=== PATIENT | male | born 1935 | race Caucasian/White ===

== ENCOUNTER 2016-12-15 11:43 | Outpatient (CLI) ==
[2016-05-01 14:42] VITALS: BMI 21.9
--- NOTE | 2016-12-15 13:28 | DI ---
EXAM: Three views of the left hand. History: Left hand trauma. Findings: Evaluation limited due to flexion of the distal digits, especially the fourth and fifth. Osteopenia. No fractures are seen. No dislocation. Severe narrowing of the first carpal metacarp al joint and moderate to severe narrowing of the second through fourth MCP joints. Moderate narrowi ng of the radiocarpal joint. Moderate to severe narrowing of the interphalangeal joints with promin ent osteophytes. Impression: Flexion of the distal digits limits evaluation but no definite fractures are seen. Oste openia and osteoarthritis.
--- NOTE | 2016-12-15 13:59 | DI ---
Examination: Two radiographic images of the left forearm. Comparison: None available. Reason for study: Pain. FINDINGS: No acute fracture or dislocation. There is a linear lucency in the distal left radius an d ulna that is not seen on the hand films performed on the same day suggesting this is artifactual. No other areas of cortical irregularity or soft tissue changes suggesting an occult fracture. Impression: No acute fracture or dislocation is seen in the left forearm.
== END 2016-12-15 11:44 | disposition home or self-care (01) ==
LOC: RAD 11:43
PROVIDERS: ATTEND Internal Medicine
DX: S59.912A Unspecified injury of left forearm, initial encounter (principal); S69.92XA Unspecified injury of left wrist, hand and finger(s), initial encounter; M79.632 Pain in left forearm; M79.642 Pain in left hand

== ENCOUNTER 2017-05-27 14:33 | Inpatient (IN) ==
[2017-05-27] MEDS ORDERED: LASIX IVP STA (15:15)
[2017-05-27] MEDS ORDERED: TORADOL IVP STA (15:15)
[2017-05-27 15:59] LABS: HEMATOCRIT 37.4 % (42.0-52.0); HEMOGLOBIN 12.3 g/dl (14.0-18.0); MEAN CORPUSCULAR HEMOGLOBIN 31.2 pg (27.0-31.0); MEAN CORPUSCULAR HGB CONC 32.9 (31.8-35.4); MEAN CORPUSCULAR VOLUME 94.9 fl (80.0-94.0); RED BLOOD COUNT 3.94 10^6/ul (4.70-6.10); WHITE BLOOD COUNT 7.69 K/ul (4.2-10.2)
[2017-05-27 16:37] LABS: ALBUMIN 2.6 g/dL (3.4-5.0); ALBUMIN/GLOBULIN RATIO 0.67; ANION GAP 13.2; BILIRUBIN,TOTAL 0.74 mg/dL (0.00-1.20); BUN/CREATININE RATIO 20.66; CALCIUM 9.2 mg/dL (8.2-10.2); CREATININE 1.21 mg/dL (0.60-1.10); POTASSIUM 4.2 mmol/L (3.5-5.1); TOTAL PROTEIN 6.5 g/dL (5.8-8.1)
[2017-05-27] MEDS: LOVENOX SUBCUT SCH (16:45)
[2017-05-27 17:07] VITALS: BMI 21.3
[2017-05-27] MEDS ORDERED: NITROSTAT SL PRN (17:18)
[2017-05-27] MEDS ORDERED: NON-FORMULARY MEDICATION (Ferrous Sulfate [Ferrous Sulfate] 325 MG) PO SCH ×22 (21:00)
[2017-05-27] MEDS ORDERED: NON-FORMULARY MEDICATION (Lovastatin [Lovastatin] 40 MG) PO SCH ×22 (21:00)
[2017-05-27] MEDS ORDERED: BETAPACE PO SCH (21:00)
[2017-05-27] MEDS ORDERED: NON-FORMULARY MEDICATION (Rivaroxaban [Xarelto] 20 MG) PO SCH (21:00)
[2017-05-27] MEDS ORDERED: FERROUS SULFATE ONE (21:07)
[2017-05-27] MEDS ORDERED: MEVACOR ONE (21:07)
[2017-05-27] MEDS ORDERED: XARELTO ONE (21:07)
[2017-05-27] MEDS: NEURONTIN PO SCH (21:15)
[2017-05-27] MEDS: TORADOL IVP SCH (21:16)
[2017-05-28 04:37] LABS: HEMOGLOBIN 11.6 g/dl (14.0-18.0); MEAN CORPUSCULAR HEMOGLOBIN 31.6 pg (27.0-31.0); MEAN CORPUSCULAR HGB CONC 33.1 (31.8-35.4); MEAN CORPUSCULAR VOLUME 95.4 fl (80.0-94.0); RED BLOOD COUNT 3.67 10^6/ul (4.70-6.10)
[2017-05-28 05:01] LABS: ALBUMIN 2.3 g/dL (3.4-5.0); ALBUMIN/GLOBULIN RATIO 0.66; ANION GAP 14.1; BILIRUBIN,TOTAL 0.62 mg/dL (0.00-1.20); BUN/CREATININE RATIO 18.63; CALCIUM 8.8 mg/dL (8.2-10.2); CREATININE 1.61 mg/dL (0.60-1.10); POTASSIUM 4.1 mmol/L (3.5-5.1); TOTAL PROTEIN 5.8 g/dL (5.8-8.1)
[2017-05-28] MEDS: TORADOL IVP SCH ×3 (05:53→20:28)
[2017-05-28] MEDS: CARAFATE PO SCH ×2 (05:53→16:44)
[2017-05-28] MEDS: LASIX IVP SCH (05:54)
--- NOTE | 2017-05-28 07:32 | DI ---
Exam: Chest one-view. HISTORY: Cough, productive. Comparison: 01/12/2015. Findings: Portable image of the chest demonstrates alveolar opacity at the left lung base with blun ting of the left costophrenic angle. Multiple calcified granulomata are again noted bilaterally. T he cardiac silhouette is enlarged. The thoracic aorta is partially calcified. Intact sternal wires are in noted. The skeletal structures appear osteopenic and grossly intact. Impressions: Small left pleural effusion and left base atelectasis or pneumonia. Follow-up PA and l ateral radiographs of the chest after appropriate therapy are recommended to confirm resolution. Atherosclerosis and prior granulomatosis. Cardiomegaly. Prior sternotomy.
--- NOTE | 2017-05-28 07:39 | DI ---
Exam: Four x-rays of the left femur. Comparison: 09/21/2013 Reason for exam: Left thigh pain. FINDINGS: Operative changes are seen after intramedullary kamaljit fixation of the left femoral neck and femoral shaft without evidence of hardware complication. The cortex appears intact. Callus formati on in the left femoral neck suggest bony remodeling. No unexplained calcific soft tissue densities or radiopaque retained foreign bodies. Impression: Operative changes are seen after orthopedic fixation of the left femur without evidence of hardware complication. No acute fracture or malalignment.
[2017-05-28] MEDS ORDERED: NON-FORMULARY MEDICATION (Potassium Chloride [Potassium Chloride] 10 MEQ) PO SCH ×22 (09:00)
[2017-05-28] MEDS ORDERED: NON-FORMULARY MEDICATION (Fenofibrate,Micronized [Fenofibrate] 134 MG) PO SCH ×22 (09:00)
[2017-05-28] MEDS: CARDIZEM CD PO SCH (09:22)
[2017-05-28] MEDS: PROTONIX PO SCH (09:23)
[2017-05-28] MEDS: TRIGLIDE PO SCH (09:23)
[2017-05-28] MEDS: PROSCAR PO SCH (09:23)
[2017-05-28] MEDS: FERROUS SULFATE PO SCH ×2 (09:23→20:29)
[2017-05-28] MEDS: LOVENOX SUBCUT SCH (09:24)
[2017-05-28] MEDS: MICRO-K CAP PO SCH (09:24)
[2017-05-28] MEDS: BETAPACE PO SCH ×2 (09:26→20:30)
--- NOTE | 2017-05-28 12:45 | HP ---
DATE OF SERVICE: 05/27/17 REASON FOR HOSPITALIZATION/HISTORY OF PRESENT ILLNESS: Both upper legs hurting x2 weeks, not wanting to stand up-feels legs can't hold him, started 2 weeks ago. 2 to 7 on scale 1-10. No fall. Left worse then right. No redness or swelling. REVIEW OF SYSTEMS: CONSTITUTIONAL: No fever. Fatigue. HEENT: No sinus drainage, no sore throat. RESPIRATORY: No cough, no congestion. CARDIOVASCULAR: No atypical chest pain for coronary artery disease. No angina , CHF symptoms, palpitations or shortness of breath. GASTROINTESTINAL: No melena or abdominal pain. No GERD. GENITOURINARY: No hematuria, no prostatism, no polyuria. SUPERINTENDENT PIER: No blackout, no dizziness, no headache, no double vision. Gait: wheelchair. MUSCULOSKELETAL: Osteoarthritis pain, no joint swelling. ENDOCRINE: No weight loss, no weight gain. SKIN: Not dry, no rash. PSYCHIATRIC: Not anxious, no depression, no suicidal thoughts, no homicidal thoughts. SOCIAL HISTORY: Marital Status: . Alcohol Usage: No. Tobacco Usage: No. FAMILY HISTORY: Father Mother Sister-1 SURGICAL HISTORY: CABG's Cancer lip Cancer top of head Dr. Vargas 2014 Left leg, 2012 Right side carotid surgery MEDICAL HISTORY: CVA Hypertension Atrial fibrillation Dyslipidemia CAD/CABG's BPH PAD Chronic bronchitis Cholelithiasis Right carotid endarterectomy 2001 MEDICATIONS: Metoprolol Succinate ER 25mg daily Fenofibrate 134mg PO daily Lovastatin 40mg PO daily Carafate 1 gram twice a day Omeprazole 40mg PO daily Nitroglycerin Finasteride 5mg PO daily Stool Softener OTC Xarelto 20mg HS Lactulose Tamie 10/15ml Polireth Caluc Pow PRN Betapace 80mg 1/2 twice a day ASA 81mg PO daily Iron D twice a day Lasix 20mg PO daily Potassium 10 meq one daily Protonix 40mg PO daily Diltazem XR 120mg PO daily ALLERGIES: No known allergies PHYSICAL EXAMINATION: V/S: Pulse 60, blood pressure 118/64 and pulse ox 96%. GENERAL APPEARANCE: Oriented times three. HEENT: Normal. On the scalp, lesions. NECK: No JVP, no bruits. RESPIRATORY: Lungs are clear. Decreased breath sounds. CARDIOVASCULAR: S1, S2, no S3, Grade II/ murmur. No cyanosis, clubbing. No ascites. GI/ABDOMEN: No tenderness. Bowel sounds are active. EXTREMITIES: +1 pitting right and left edema, pulses +1, equal. SUPERINTENDENT PIER: Deep tendon reflexes, sensory, motor and gait all normal. RECTAL: 05/27 Dr. Garcia endo/PROSTATE: 07-27(4.6) Dr. Virgen. ASSESSMENT: 1. Leg swelling with leg pain More severe 2. CVA with left hemiparesis 3. Hypertension 4. Atrial fibrillation 5. Dyslipidemia 6. CAD/CABG 2005 7. Benign prostatic hypertrophy 8. PAD 9. Moderate Alzheimer's 10.BCA- Dr. Case 11.Chronic bronchitis 12.Cholelithiasis 13.Right Carotid endarterectomy 2001 PLAN: 1. Admit regular 2. Elevate legs 3. Toradol 30mg IV now and 8 hours 4. Lasix 20mg IV now and daily AM 5. Venous scan both lower extremities 6. Diet- regular 7. CBC , CMP, TSH today 8. Daily CBC and CMP 9. EKG and x-ray chest today 10.Continue all home medications. Discontinue PO Lasix 11.X-ray of left thigh (femur) 12.Neurontin 300mg PO at HS daily 13.Telemetry x24 hours 14.Lovenox 40mg subcutaneously daily TIME SPENT: More than 70 minutes. MTDD
--- NOTE | 2017-05-28 13:27 | PCM.PROG ---
Attending Provider: ATTENDING PROVIDER: Dr. AQUILES REESE DATE OF SERVICE: 05/28/17 SUBJECTIVE: This 81 year old WHITE/ M was hospitalized 05/27/17. The patient is seen with Leah, Nurse Practitioner. The patient is lying in bed, alert, difficulty communicating due to patient being hard of hearing. X-ray of left femur is normal. Venous scan today. REVIEW OF SYSTEMS: CONSTITUTIONAL: No night sweats. No fatigue, malaise, lethargy. No fever or chills. HEENT: Eyes: No visual changes. No eye pain. No eye discharge. ENT: No runny nose. No epistaxis. No sinus pain. No odynophagia. No congestion. RESPIRATORY: No cough, no congestion. No hemoptysis. CARDIOVASCULAR: No angina symptoms. No CHF symptoms. No atypical chest pain for CAD. No palpitations. No shortness of breath. GASTROINTESTINAL: No abdominal pain. No nausea or vomiting. No diarrhea or constipation. No hematemesis. No hematochezia. GENITOURINARY: No urgency. No frequency. No dysuria. No hematuria. No obstructive symptoms. No discharge. No pain. No significant abnormal bleeding. MUSCULOSKELETAL: Weakness of legs. NEUROLOGICAL: Confusion off and on. No headache. No neck pain. No syncope. No seizures. No dizziness. PSYCHIATRIC: Not anxious. No depression. No suicidal thoughts. No homicidal thoughts. SKIN: No rash. Wound on scalp 1". ENDOCRINE: No unexplained weight loss. No weight gain. HEMATOLOGIC/LYMPHATIC: No anemia. No purpura. No petechiae. No prolonged or excessive bleeding. No palpable lymph nodes. PHYSICAL EXAMINATION: GENERAL: The patient is somewhat confused , lying in bed in no distress. VITAL SIGNS: Temperature 97.0 F, Pulse 48, Respiratory Rate 20, BP 109/58, Pulse Ox 97% HEENT: Head normocephalic, atraumatic. Eyes: Extraocular muscles are intact. Pupils are equal, round and reactive to light and accommodation. Ears: No lesions. Hard of hearing. Nose appeared normal. Throat: No exudate or erythema. NECK: Supple. No JVD, no carotid bruit. No lymphadenopathy or thyromegaly. LUNGS: Equally diminished breath sounds, clear to auscultation. Percussion note normal. Chest symmetrical. HEART: S1, S2, no S3. Grade II/ systolic murmur. No cyanosis or clubbing. No ascites. Pulses: Dorsalis pedis and posterior tibial pulses +1 to +2 both sides. ABDOMEN: Soft. Non-tender. Bowel sounds active. No CVA tenderness. No mass felt. EXTREMITIES: Trace lower extremity edema. Full range of motion of all extremities, equal. NEUROLOGIC: No focal deficit. Cranial nerves II through XII are grossly intact. No headache, no double vision or headache. SKIN: Not dry. Turgor-normal. Wound on scalp 1", chronic, present for at least one year. LYMPHATIC: No palpable lymph nodes/no lymphedema. MUSCULOSKELETAL: Normal joints with no swelling. Muscle tone is normal. LAB REVIEW: 05/28/17 04:20 05/28/17 04:20 05/28/17 04:20: WBC 7.00, RBC 3.67 L, Hgb 11.6 L, Hct 35.0 L, MCV 95.4 H, MCH 31.6 H, MCHC 33.1, RDW Coeff of Giuseppe 13.8, Plt Count 193, Sodium 141, Potassium 4.1, Chloride 105, Carbon Dioxide 26, Anion Gap 14.1, BUN 30 H, Creatinine 1.61 H, Estimated GFR (MDRD) 41.00, BUN/Creatinine Ratio 18.63, Glucose 82, Calcium 8.8, Total Bilirubin 0.62, AST 15, ALT 7 L, Alkaline Phosphatase 69, Total Protein 5.8, Albumin 2.3 L, Globulin 3.5, Albumin/Globulin Ratio 0.66 05/27/17 15:15: WBC 7.69, RBC 3.94 L, Hgb 12.3 L, Hct 37.4 L, MCV 94.9 H, MCH 31.2 H, MCHC 32.9, RDW Coeff of Giuseppe 13.9, Plt Count 225, Sodium 139, Potassium 4.2, Chloride 104, Carbon Dioxide 26, Anion Gap 13.2, BUN 25 H, Creatinine 1.21 H, Estimated GFR (MDRD) 58.00, BUN/Creatinine Ratio 20.66, Glucose 87, Calcium 9.2, Total Bilirubin 0.74, AST 16, ALT 8 L, Alkaline Phosphatase 75, Total Protein 6.5, Albumin 2.6 L, Globulin 3.9, Albumin/Globulin Ratio 0.67, TSH 0.944 ASSESSMENT: 1. Leg swelling 2. Hypotension 3. Bradycardia 4. Leg pain PLAN: 1. Decrease Betapace to 20 mg b.i.d. 2. Venous scan is pending. Plan and coordination of the patient's care discussed in the presence of Aviation Support Equipment Repairer and nurse. CONDITION: Stable SCRIBED BY: GIRMA PERRY Social Media Intern scribed while in presence of service performed by Dr. AQUILES REESE/LEAH DAWSON APRN on 05/28/17 ([id number])
--- NOTE | 2017-05-28 14:24 | US ---
Exam: Rothman-scale and color Doppler ultrasonographic evaluation of the lower extremity venous struct ures. Comparison: None available. Reason for exam: Bilateral leg swelling and pain. FINDINGS: There is spontaneous flow with adequate compression and respiratory augmentation seen in both the left and right common femoral, greater saphenous, profunda, superficial femoral, popliteal, peroneal, posterior tibial veins. The right anterior tibial vein is not seen on the examination. The left anterior tibial veins demonstrate spontaneous flow with adequate compression and respirator y augmentation. Patient reports the anterior tibial vein was removed years ago for a bypass procedure. Impression: 1. No evidence of deep venous thrombosis is seen within either the right or left lower extremities. 2. The right anterior tibial vein is not seen on the examination presumably from previous surgical procedure.
[2017-05-28] MEDS: NEURONTIN PO SCH (20:29)
[2017-05-28] MEDS ORDERED: MEVACOR PO SCH (21:00)
[2017-05-28] MEDS ORDERED: XARELTO PO SCH (21:00)
[2017-05-29 05:45] VITALS: TEMP 300
[2017-05-29 05:46] LABS: HEMATOCRIT 34.4 % (42.0-52.0); HEMOGLOBIN 11.4 g/dl (14.0-18.0); MEAN CORPUSCULAR HEMOGLOBIN 31.7 pg (27.0-31.0); MEAN CORPUSCULAR HGB CONC 33.1 (31.8-35.4); MEAN CORPUSCULAR VOLUME 95.6 fl (80.0-94.0); RED BLOOD COUNT 3.6 10^6/ul (4.70-6.10); WHITE BLOOD COUNT 7.74 K/ul (4.2-10.2)
[2017-05-29] MEDS: CARAFATE PO SCH (05:51)
[2017-05-29] MEDS: TORADOL IVP SCH (05:52)
[2017-05-29] MEDS: LASIX IVP SCH (05:52)
[2017-05-29 06:11] LABS: ALBUMIN 2.2 g/dL (3.4-5.0); ALBUMIN/GLOBULIN RATIO 0.65; ANION GAP 14.7; BILIRUBIN,TOTAL 0.65 mg/dL (0.00-1.20); BUN/CREATININE RATIO 18.99; CALCIUM 8.6 mg/dL (8.2-10.2); CREATININE 1.79 mg/dL (0.60-1.10); POTASSIUM 4.7 mmol/L (3.5-5.1); TOTAL PROTEIN 5.6 g/dL (5.8-8.1)
[2017-05-29] MEDS: LOVENOX SUBCUT SCH (09:21)
[2017-05-29] MEDS: BETAPACE PO SCH (09:21)
[2017-05-29] MEDS: CARDIZEM CD PO SCH (09:22)
[2017-05-29] MEDS: FERROUS SULFATE PO SCH (09:22)
[2017-05-29] MEDS: PROTONIX PO SCH (09:23)
[2017-05-29] MEDS: TRIGLIDE PO SCH (09:23)
[2017-05-29] MEDS: MICRO-K CAP PO SCH (09:23)
[2017-05-29] MEDS: PROSCAR PO SCH (09:23)
[2017-05-29 10:11] VITALS: BP 132/82
--- NOTE | 2017-05-29 11:20 | PCM.PROG ---
Attending Provider: ATTENDING PROVIDER: Dr. AQUILES REESE DATE OF SERVICE: 05/29/17 SUBJECTIVE: This 81 year old WHITE/ M was hospitalized 05/27/17. The patient is seen by Leah, Nurse Practitioner. The patient is alert, lying in bed. The patient is ready to go home. Leg pain and swelling improved. is in the room. Vital signs and labs stable during course of hospital stay. All imaging negative. REVIEW OF SYSTEMS: CONSTITUTIONAL: No night sweats. No fatigue, malaise, lethargy. No fever or chills. HEENT: Head: Chronic ulcer on scalp. Eyes: No visual changes. No eye pain. No eye discharge. ENT: Ears: hard of hearing. No runny nose. No epistaxis. No sinus pain. No odynophagia. No congestion. RESPIRATORY: No cough, no congestion. No hemoptysis. No shortness of breath. CARDIOVASCULAR: No angina symptoms. No CHF symptoms. No atypical chest pain for CAD. No palpitations. No orthopnea. GASTROINTESTINAL: No abdominal pain. No nausea or vomiting. No diarrhea or constipation. No hematemesis. No hematochezia. GENITOURINARY: No urgency. No frequency. No dysuria. No hematuria. No obstructive symptoms. No discharge. No pain. No significant abnormal bleeding. MUSCULOSKELETAL: Positive for leg weakness. NEUROLOGICAL: Awake, alert, oriented to time, place and person. No headache. No neck pain. No syncope. No seizures. No dizziness. PSYCHIATRIC: Not anxious. No depression. No suicidal thoughts. No homicidal thoughts. SKIN: No rash. Ulcer on scalp. ENDOCRINE: No unexplained weight loss. No weight gain. HEMATOLOGIC/LYMPHATIC: No anemia. No purpura. No petechiae. No prolonged or excessive bleeding. No palpable lymph nodes. PHYSICAL EXAMINATION: GENERAL: The patient is awake, alert and oriented, lying in bed in no distress. VITAL SIGNS: Temperature 300 F, Pulse 49, Respiratory Rate 17, BP 126/62, Pulse Ox 98% HEENT: Head normocephalic, atraumatic. Eyes: Extraocular muscles are intact. Pupils are equal, round and reactive to light and accommodation. Ears: No lesions. Nose appeared normal. Throat: No exudate or erythema. NECK: Supple. No JVD, no carotid bruit. No lymphadenopathy or thyromegaly. LUNGS: Diminished breath sounds, equal and clear to auscultation. Percussion note normal. Chest symmetrical. HEART: S1, S2, no S3. Grade II/ systolic murmur. No cyanosis or clubbing. No ascites. Pulses: Dorsalis pedis and posterior tibial pulses +1 to +2 both sides. ABDOMEN: Soft. Non-tender. Bowel sounds active. No CVA tenderness. No mass felt. EXTREMITIES: No edema. Full range of motion of all extremities, equal. NEUROLOGIC: No focal deficit. Cranial nerves II through XII are grossly intact. No headache, no double vision or headache. SKIN: Not dry. Intact. Turgor-normal. LYMPHATIC: No palpable lymph nodes/no lymphedema. MUSCULOSKELETAL: Normal joints with no swelling. Muscle tone is normal. LAB REVIEW: 05/29/17 05:30 05/29/17 05:30 05/29/17 05:30: WBC 7.74, RBC 3.60 L, Hgb 11.4 L, Hct 34.4 L, MCV 95.6 H, MCH 31.7 H, MCHC 33.1, RDW Coeff of Giuseppe 13.6, Plt Count 201, Sodium 137, Potassium 4.7, Chloride 100, Carbon Dioxide 27, Anion Gap 14.7, BUN 34 H, Creatinine 1.79 H, Estimated GFR (MDRD) 37.00, BUN/Creatinine Ratio 18.99, Glucose 86, Calcium 8.6, Total Bilirubin 0.65, AST 18, ALT 8 L, Alkaline Phosphatase 68, Total Protein 5.6 L, Albumin 2.2 L, Globulin 3.4, Albumin/Globulin Ratio 0.65 ASSESSMENT: 1. Leg swelling and pain resolved 2. Hypotension resolved 3. Bradycardia PLAN: 1. Discharge home today. 2. Will see in the office next week. 3. Betapace 20 mg b.i.d. 4. The patient has [employer] and will have PT/OT at home and they are agreeable. Plan and coordination of the patient's care discussed in the presence of Dependency Case Manager and nurse. CONDITION: Stable SCRIBED BY: GIRMA PERRY Associate Principal scribed while in presence of service performed by Dr. AQUILES REESE/LEAH DAWSON APRN on 05/29/17 ([id number])
--- NOTE | 2017-05-29 12:17 | CM.DICTOOL ---
ADMISSION: 05/27/17 14:33 DISCHARGE: 05/29/17 DATE OF SERVICE: 05/29/17 FINAL DIAGNOSIS LEG SWELLING LEG PAIN CAD AND HISTORY OF [place], 2002 S/P CABG AORTIC STENOSIS ATRIAL FLUTTER/FIB HYPERTENSION DYSLIPIDEMIA PERIPHERAL ARTERIAL DISEASE CVA, LEFT SIDE WEAKNESS, 2008 CAROTID STENOSIS S/P RIGHT CAROTID ENDARTERECTOMY BRONCHITIS GI BLEED BY HISTORY ANEMIA CHOLELITHIASIS BPH SKIN CANCER (TOP OF HEAD) RADIATION [place], EXCISED BY DR. POSEY, [place], [place]; 06/26 GRAM NEGATIVE RODS/GRAM POSITIVE COCCI PER CULTURE 05/29/17 LIP CANCER S/P LEFT HIP FRACTURE/SURGERY, 2011 LAST VITALS Temp Pulse Resp BP Pulse Ox 300 F H 63 22 132/82 97 05/29/17 05:44 05/29/17 10:00 05/29/17 10:00 05/29/17 10:00 05/29/17 10:00 ACTIVE MEDICATIONS Diltiazem HCl (Cardizem Cd) 120 mg PO DAILY [facility] Last Admin: 05/29/17 09:22 Dose: 120 mg Fenofibrate (Triglide) 160 mg PO DAILY [facility] Last Admin: 05/29/17 09:23 Dose: 160 mg Ferrous Sulfate (Ferrous Sulfate) 324 mg PO BID [facility] Last Admin: 05/29/17 09:22 Dose: 324 mg Finasteride (Proscar) 5 mg PO DAILY [facility] Last Admin: 05/29/17 09:23 Dose: 5 mg Furosemide (Lasix) 20 mg PO QDAC [facility] Last Admin: 05/29/17 05:52 Dose: 20 mg Gabapentin (Neurontin) 300 mg PO BEDTIME [facility] (NEW PRESCRIPTION) Last Admin: 05/28/17 20:29 Dose: 300 mg Lovastatin (Mevacor) 40 mg PO BEDTIME [facility] Last Admin: 05/28/17 20:29 Dose: 40 mg Nitroglycerin (Nitrostat) 0.4 mg SL ONCE PRN PRN Reason: Chest Pain Pantoprazole Sodium (Protonix) 40 mg PO DAILY [facility] Last Admin: 05/29/17 09:23 Dose: 40 mg Potassium Chloride (Micro-K Cap) 10 meq PO DAILY [facility] Last Admin: 05/29/17 09:23 Dose: 10 meq Rivaroxaban (Xarelto) 20 mg PO BEDTIME [facility] Last Admin: 05/28/17 20:29 Dose: 20 mg Sotalol HCl (Betapace) 20 mg PO BID [facility] (NEW DOSE. DECREASED FROM 40 MG PO BID) Last Admin: 05/29/17 09:21 Dose: 20 mg Sucralfate (Carafate) 1 gm PO BIDAC [facility] Last Admin: 05/29/17 05:51 Dose: 1 gm ALLERGIES No Known Allergies Allergy (Unverified 05/01/16 11:00) NEW PRESCRIPTIONS: BACTROBAN 22 GRAM TUBE, ONE APPLICATION TO THE WOUND ON TOP OF YOUR HEAD TWICE DAILY GABAPENTIN (NEURONTIN) 300 MG, TAKE ONE CAPSULE BY MOUTH AT BEDTIME DAILY PLEASE NOTE THE DOSE CHANGE IN YOUR BETAPACE 40 MG TO 20 MG PO BID SMOKING: NONSMOKER DISEASE SPECIFIC EDUCATION: EDEMA LEG PAIN HOME MEDICATIONS NEW PRESCRIPTIONS FOLLOW UP LAB REVIEW: 05/29/17 05:30 05/29/17 05:30 05/29/17 05:30: WBC 7.74, RBC 3.60 L, Hgb 11.4 L, Hct 34.4 L, MCV 95.6 H, MCH 31.7 H, MCHC 33.1, RDW Coeff of Giuseppe 13.6, Plt Count 201, Sodium 137, Potassium 4.7, Chloride 100, Carbon Dioxide 27, Anion Gap 14.7, BUN 34 H, Creatinine 1.79 H, Estimated GFR (MDRD) 37.00, BUN/Creatinine Ratio 18.99, Glucose 86, Calcium 8.6, Total Bilirubin 0.65, AST 18, ALT 8 L, Alkaline Phosphatase 68, Total Protein 5.6 L, Albumin 2.2 L, Globulin 3.4, Albumin/Globulin Ratio 0.65 PLAN: DISCHARGE HOME TODAY RETURN TO SEE DR. REESE IN ONE WEEK. PLEASE PHONE TO SCHEDULE YOUR APPOINTMENT [phone] POSEY WITH REGARD TO THE WOUND ON THE TOP OF YOUR HEAD [facility] WILL CONTACT YOU TO BEGIN HOME HEALTH NURSING SERVICES FOR GENERAL ASSESSMENT, MEDICATION COMPLIANCE AND TO MONITOR FOR LOWER EXTREMITY EDEMA. PHYSICAL THERAPY AND OCCUPATIONAL THERAPY WILL ALSO PROVIDE SERVICES. RESUME YOUR HOME MEDICATIONS PER LIST PROVIDED BY THE NURSING STAFF PLEASE NOTE THE DECREASE IN YOUR BETAPACE FROM 40 MG TO 20 MG BY MOUTH TWICE DAILY NEW PRESCRIPTIONS: BACTROBAN 22 GRAM TUBE, ONE APPLICATION TO THE WOUND ON TOP OF YOUR HEAD TWICE DAILY GABAPENTIN (NEURONTIN) 300 MG, TAKE ONE CAPSULE BY MOUTH AT BEDTIME DAILY ACTIVITY: GET PLENTY OF REST AT HOME. GRADUALLY INCREASE YOUR ACTIVITY LEVEL ACCORDING TO YOUR TOLERATION DIET: REGULAR DIET TOLERATED SUMMARY: THE PATIENT IS ALERT AND ORIENTED X3. HE CURRENTLY RESIDES AT HOME WITH HIS SPOUSE. HE REQUIRES ASSISTANCE WITH SOME ADL'S BUT IS ABLE TO FEED HIMSELF AND COMPLETE PARTIAL HYGIENIC TASKS. HE HAS A WHEELCHAIR, HOSPITAL BED AND SHOWER CHAIR AT HOME. HE UTILIZED [facility] PRIOR TO THIS ADMISSION. THESE SERVICES WILL BE RESUMED AT DISCHARGE. IN ADDITION WE HAVE ARRANGED FOR HOME HEALTH NURSING, PT/OT SERVICES. THE PATIENT IS AWARE AND IS AGREEABLE FOR [facility] TO PROVIDE THIS CARE IN HIS HOME. THE PATIENT'S SKIN TURGOR IS VERY FRAGILE. HE HAS SEVERAL AREAS OF ECCHYMOSIS AND A SKIN TEAR FROM "SCRATCHING" ON HIS RIGHT HAND BETWEEN HIS THIRD AND FOURTH FINGER. HIS HYDRATIONS STATUS IS IMPROVED IS HIS APPETITE. HE IS PAIN FREE AND OFFERS NO COMPLAINTS OF DISCOMFORT THIS MORNING. HE IS AWARE AND AGREEABLE FOR TODAY'S DISCHARGE. CURRENT CODE STATUS: DO NOT RESUSCITATE VEGA DAWSON APRN AQUILES REESE M.D.
--- NOTE | 2017-06-01 08:37 | ECHO2D ---
Date of Exam: 05/29/17 Ordering Physician: AQUILES REESE Reason for Echo: PERIPHERAL EDEMA, SINUS BRADYCARDIA M-Mode Normal Adult Results LV Dimensions Normal Adult Results AoV Opening excursions >1.6 1.3 LVEDD-base- 3.5-5.8 4.0 Ao root dimensions 2.0-3.7 3.4 LVESD-base- 3.1-4.6 L. Atrium dimensions 1.9-3.8 4.4 Post. Wall thickness 0.8-1.1 1.3 IV septum (thickness) 0.7-1.2 1.4 Post. Wall excursion 0.72-1.3 NORMAL Septal motion NORMAL Systolic motion R. Ventricular cavity 1.5-2.0 NORMAL LVEF 60% 57% Paradoxical septal wall motion NORMAL 2-D : ENLARGED LEFT ATRIAL CAVITY--NORMAL LEFT VENTRICULAR CONTRACTILITY-- CALCIFIC MITRAL VALVE ANNULUS--CALCIFIC AORTIC VALVES--NO EFFUSION, NO THROMBUS M-MODE: MV: CALCIFIC MITRAL VALVE ANNULUS--MAYBE STENOSIS AV: CALCIFIC AORTIC VALVES--MILD TO MODERATE STENOSIS TV: NORMAL PV: NORMAL CHAMBER SIZE: ENLARGED LEFT ATRIAL CAVITY WALL MOTION: NORMAL PERICARDIUM: NORMAL INTERPRETATION: 1. LEFT VENTRICLE HYPERTROPHY WITH ENLARGED LEFT ATRIAL CAVITY 2. LEFT VENTRICULAR CONTRACTILITY--NORMAL 3. CALCIFIC AORTIC VALVES--MILD TO MODERATE AORTIC STENOSIS 4. CALCIFIC MITRAL VALVE ANNULUS--MAYBE MILD STENOSIS MTDD
--- NOTE | 2017-06-05 08:35 | PN ---
DATE OF SERVICE: 05/28/17 SUBJECTIVE: The patient is an 81 year old white male hospitalized with leg swelling, severe leg pain and polyradiculopathy. The patient had a fracture of the left thigh. The patient's venous scans and x-ray of the left thigh all normal. The is in the room and she is happy with the patient's progress. REVIEW OF SYSTEMS: CONSTITUTIONAL: No night sweats. No fatigue, malaise, lethargy. No fever or chills. HEENT: Eyes: No visual changes. No eye pain. No eye discharge. ENT: No runny nose. No epistaxis. No sinus pain. No sore throat. No odynophagia. No congestion. RESPIRATORY: No cough, no congestion. No hemoptysis. No shortness of breath. CARDIOVASCULAR: No angina symptoms. No CHF symptoms. No atypical chest pain for CAD. No palpitations. No orthopnea. GASTROINTESTINAL: No abdominal pain. No nausea or vomiting. No diarrhea or constipation. No hematemesis. No hematochezia. Appetite better. GENITOURINARY: No urgency. No frequency. No dysuria. No hematuria. No obstructive symptoms. No discharge. No pain. No significant abnormal bleeding. MUSCULOSKELETAL: No musculoskeletal pain; no joint swelling. Much less pain. NEUROLOGICAL: No headache. No neck pain. No syncope. No seizures. No dizziness. PSYCHIATRIC: Not anxious. No depression. No suicidal thoughts. No homicidal thoughts. SKIN: No rash. No lesions. No wounds. ENDOCRINE: No unexplained weight loss. No weight gain. HEMATOLOGIC/LYMPHATIC: No anemia. No purpura. No petechiae. No prolonged or excessive bleeding. No palpable lymph nodes. PHYSICAL EXAMINATION: GENERAL: The patient is somewhat sleepy and oriented to person. VITAL SIGNS: Temperature 97.0, pulse 48, respiratory 20, blood pressure 109/58 and pulse ox 97%. HEENT: Head normocephalic, atraumatic. Eyes: Extraocular muscles are intact. Pupils are equal, round and reactive to light and accommodation. Ears: No lesions. Nose appeared normal. Throat: No exudate or erythema. NECK: Supple. No JVD, no carotid bruit. No lymphadenopathy or thyromegaly. LUNGS: Clear to auscultation. Percussion note normal. Chest symmetrical. HEART: S1, S2, no S3. No murmurs. No cyanosis or clubbing. No ascites. Pulses: Dorsalis pedis and posterior tibial pulses +1 to +2 both sides. ABDOMEN: Soft. Nontender. Bowel sounds active. No CVA tenderness. No mass felt. EXTREMITIES: No edema. Full range of motion of all extremities, equal. NEUROLOGIC: No focal deficit. Cranial nerves II through XII are grossly intact. No headache, no double vision or headache. SKIN: Not dry. Intact. Turgor - normal. LYMPHATIC: No palpable lymph nodes/no lymphedema. MUSCULOSKELETAL: Normal joints with no swelling. Muscle tone is normal. ASSESSMENT: 1. Left bilateral lower extremity pain, likely neurogenic seems to be better with Neurontin and Toradol IV PLAN: 1. Venous scan negative 2. Discussed with the patient's family the patient's cardiovascular status seems to be stable. 3. The patient's dose of Betapace has been reduced to 20mg twice a day because of patient's heart rate being 48 per minute. 4. Will do cardiac workup in a way of echocardiogram tomorrow. The patient was seen and examined with Nurse Practitioner. TIME SPENT: More than 30 minutes. Plan and coordination of the patient's care discussed in the presence of nurse. DEBBIE
--- NOTE | 2017-06-11 12:12 | PN ---
DATE OF SERVICE: 05/29/17 The patient was seen and examined with the nurse practitioner and patient case coordinator. SUBJECTIVE: 81 year old white male hospitalized with leg swelling and moderate to severe leg pain, left sided nonneuropathic type. According to the , the patient's leg pain is practically subsided. The patient has been on Neurontin and this seems to be working well. His hydration status has improved. He is eating better and resting better. PHYSICAL EXAMINATION: GENERAL: The patient is in no distress. HEENT: Head normocephalic, atraumatic. Eyes: Extraocular muscles are intact. Pupils are equal, round and reactive to light and accommodation. Ears: No lesions. Nose appeared normal. Throat: No exudate or erythema. NECK: Supple. No JVD, no carotid bruit. No lymphadenopathy or thyromegaly. LUNGS: Clear to auscultation. Percussion note normal. Chest symmetrical. HEART: S1, S2, no S3. No murmurs. No cyanosis or clubbing. No ascites. Pulses: Dorsalis pedis and posterior tibial pulses +1 to +2 both sides. ABDOMEN: Soft. Nontender. Bowel sounds active. No CVA tenderness. No mass felt. EXTREMITIES: No edema. Full range of motion of all extremities, equal. NEUROLOGIC: No focal deficit. Cranial nerves II through XII are grossly intact. No headache, no double vision or headache. SKIN: Not dry. Intact. Turgor - normal. LYMPHATIC: No palpable lymph nodes/no lymphedema. MUSCULOSKELETAL: Normal joints with no swelling. Muscle tone is normal. LABS: Hemoglobin 11.4, hematocrit 34, WBC 7,700 with normal differential. Creatinine 1.7, BUN 34. TSH normal. The patient had an echocardiogram done which showed mild to moderate aortic stenosis and mild to moderate mitral stenosis. LV contractility is normal. LA cavities enlarged. The patient has an LVH. I discussed with the patient's family and the patient is not a candidate for any aggressive measures. They do not want anything to be done, except for him to be monitored. PLAN: 1. The patient will be discharged home. 2. PT and OT to be done by [facility], because the patient needs to stand up and do some things. Transfer needs to be trained for it. CONDITION: Stable. TIME SPENT: More than 30 minutes. Plan and coordination of the patient's care discussed in the presence of nurse. DEBBIE
--- NOTE | 2017-06-11 12:14 | PN ---
05/27/17 LEVEL 5 05/28/17 INTERMEDIATE 05/29/17 DISCHARGE MTDD
--- NOTE | 2017-06-11 14:27 | DS ---
DATE OF SERVICE: 05/29/17 FINAL DIAGNOSIS: 1. LEG SWELLING 2. LEG PAIN/NEUROPATHY 3. CAD AND HISTORY 4. AORTIC STENOSIS 5. ATRIAL FLUTTER/FIB 6. HYPERTENSION 7. DYSLIPIDEMIA 8. PERIPHERAL ARTERIAL DISEASE 9. CVA, LEFT-SIDED WEAKNESS, 2008 10. CAROTID STENOSIS STATUS POST RIGHT CAROTID ENDARTERECTOMY 11. BRONCHITIS 12. GI BLEED BY HISTORY 13. ANEMIA 14. CHOLELITHIASIS 15. BPH 16. SKIN CANCER (TOP OF HEAD) RADIATION TX, EXCISED BY DR. 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 S/P LEFT HIP FRACTURE/SURGERY, 2011 DISCHARGE INSTRUCTIONS: Followup appointment: Return to see Dr. Otero in one week. Please phone to schedule your appointment. [facility] will contact you to begin home health nursing services for general assessment, medication compliance and to monitor for lower extr emity edema. Physical Therapy and Occupational Therapy will also provide services. MEDICATIONS AT DISCHARGE: 1. Nitroglycerin 0.4 mg SL once p.r.n. 2. Pantoprazole 40 mg p.o. daily 3. Fenofibrate 134 mg p.o. daily 4. Lovastatin 40 mg p.o. bedtime 5. Finasteride 5 mg p.o. daily 6. Docusate Sodium 100 mg p.o. b.i.d. 7. Rivaoxaban (Xarelto) 20 mg p.o. bedtime 8. Furosemide 20 mg p.o. q.d a.c. 9. Potassium Chloride 10 mEq p.o. daily 10. Ferrous Sulfate 325 mg p.o. b.i.d. 11. Diltiazem (Cartia XT) 120 mg p.o. daily 12. Sucralfate (Carafate) 1 gm p.o. b.i.d. a.c. NEW PRESCRIPTIONS: 1. Bactroban 22 gm tube, one application to the wound on top of your head twice daily 2. Gabapentin (Neurontin) 300 mg, take one capsule by mouth at bedtime daily Please note the Decrease in your Betapace 40 mg to 20 mg p.o. b.i.d. DIET INSTRUCTIONS: Regular diet as tolerated. ACTIVITY: Get plenty of rest at home. Gradually increase your activity level according to your toleration. SMOKING: Nonsmoker DISEASE SPECIFIC EDUCATION: 1. Edema 2. Leg pain 3. Home medications 4. New prescriptions 5. Follow up HOSPITAL COURSE: This is an 81-year-old male who is a direct admit from our office. He was seen in our office with bilateral leg pain and swelling worse on the left. He does have a history of a left femur fracture for which he has some pins and rods and his was concerned that some of his hardware may have migrated. He was admitted, placed on routine telemetry orders. He was given Toradol 30 mg IV for pain. X-ray of the left femur was done which showed all hardware was in place with no migration, no acute changes. Changes were only consistent with osteoarthritis. He had bilateral venous scan which was also negative and showed no blood clots. He was placed on routine telemetry orders. He was experiencing some bradycardia while in the hospital. He was currently on Betapace 40 mg b.i.d. This was decreased to 20 mg p.o. b.i.d. He was started on physical therapy. Over the past two days this morning he stated that he had not been hurting. He had been eating 100% of his meals. His pain had improved. I do believe that his pain is more related to muscular with more muscular in origin and is due to inactivity as he is in a wheelchair most of the time. We will order Physical Therapy and Occupational Therapy to be done at home. The family already has [facility] come out during the week so we will just add Physical Therapy and Occupational therapy through [facility] as well. The patient does have a history of aortic stenosis and Dr. Otero is going to do a 2D echo before discharge just as a followup. His vital signs and labs have all been steady. On the day of discharge, pulse rate was 50, respirations 17, BP 126/62, pulse ox 98% on room air. Hemoglobin 11.4, hematocrit 34.4, white count 7.7, platelets 201. Sodium 137, potassium 4.7, BUN 34, creatinine 1.79 which is steady for him. We will monitor him closely and see him in the office the next week. He does have a chronic open lesion on his scalp from a previous resection of skin cancer which has unhealed and has been that way approximately the past year. A culture was conducted which showed no growth of any organisms and was normal. We will discharge him home with decrease of 20 mg of Betapace b.i.d. Again, will start the Physical Therapy and Dr. Otero will do an echo and follow him up in the office next week. TIME SPENT: More than 60 minutes. DEBBIE
== END 2017-05-29 14:10 | disposition home health service (06) | DRG 74 ==
LOC: MEDSURG B 14:33
PROVIDERS: ADMIT Internal Medicine; ATTEND Internal Medicine
DX: G57.93 Unspecified mononeuropathy of bilateral lower limbs (principal); I69.354 Hemiplegia and hemiparesis following cerebral infarction affecting left non-dominant side; R60.0 Localized edema; M79.605 Pain in left leg; M79.604 Pain in right leg; I25.10 Atherosclerotic heart disease of native coronary artery without angina pectoris; I35.0 Nonrheumatic aortic (valve) stenosis; I48.91 Unspecified atrial fibrillation; I10 Essential (primary) hypertension; I73.9 Peripheral vascular disease, unspecified; E78.5 Hyperlipidemia, unspecified; R41.0 Disorientation, unspecified; R00.1 Bradycardia, unspecified; S01.00XA Unspecified open wound of scalp, initial encounter; B95.61 Methicillin susceptible Staphylococcus aureus infection as the cause of diseases classified elsewhere; B96.89 Other specified bacterial agents as the cause of diseases classified elsewhere; X58.XXXA Exposure to other specified factors, initial encounter; I95.9 Hypotension, unspecified; J40 Bronchitis, not specified as acute or chronic; D64.9 Anemia, unspecified; N40.0 Benign prostatic hyperplasia without lower urinary tract symptoms; Z87.81 Personal history of (healed) traumatic fracture; Z98.62 Peripheral vascular angioplasty status; Z87.19 Personal history of other diseases of the digestive system; Z98.890 Other specified postprocedural states; Z16.11 Resistance to penicillins
CPT/HCPCS: 36415; 80053; 84443; 85027; 87070; 87081; 87186; 93005; 93010; 99223; 99232; 99239

== ENCOUNTER 2017-07-20 13:41 | Outpatient (CLI) ==
--- NOTE | 2017-07-20 14:41 | DI ---
EXAM: Chest two view, frontal and lateral views. HISTORY: Left pleural effusion. Follow-up. COMPARISON: 05/27/2017. FINDINGS: Median sternotomy wires are present. Heart size is stable. Atherosclerotic calcification s noted. Left pleural effusion with left mid to lower lung consolidation is unchanged. There may be a tiny right pleural effusion. Numerous calcified and noncalcified nodular densities throughout bot h lungs again noted. No pneumothorax identified. Degenerative changes seen in the spine. Since the prior study, there has been no significant interval change. IMPRESSION: Stable left pleural effusion with left mid to lower lung consolidation.
== END 2017-07-20 13:42 | disposition home or self-care (01) ==
LOC: RAD 13:41
PROVIDERS: ATTEND Nurse Practitioner Acute Care
DX: J90 Pleural effusion, not elsewhere classified (principal)

== ENCOUNTER 2017-07-29 18:44 | Emergency (ER) ==
[2017-07-29 18:49] VITALS: TEMP 96.8; BMI 22.9
--- NOTE | 2017-07-29 19:56 | CT ---
EXAM: CT scan of the head without contrast HISTORY: Fall injury right hip pain TECHNIQUE: Imaging of the head was performed without contrast. 5 mm thin axial images and coronal a nd sagittal images were provided for interpretation. Comparison 09/21/2013 CT scan of the head without contrast. FINDINGS: The lateral ventricles and cortical sulci are prominent from atrophy. Low density changes are again seen within the right frontal, right parietal lobe, and right occipital lobe. There is no acute hemorrhage or mass effect. There are no extraaxial collections. The basal cisterns are paten t. The paranasal sinuses and mastoid air cells are clear. The calvarium appears normal. IMPRESSION: No acute intracranial abnormalities are seen. Stable appearance of old cerebral infarction seen within the right frontal, right parietal lobe, and right occipital lobe. Chronic small vessel ischemic changes seen throughout the supratentorial white matter.
[2017-07-29] MEDS ORDERED: SODIUM CHLORIDE 1,000 ML IV STA (20:00)
--- NOTE | 2017-07-29 20:01 | CT ---
EXAM: CT scan of the cervical spine without contrast HISTORY: Fall TECHNIQUE: Imaging of the cervical spine was performed without contrast. Sagittal and coronal recon structions and axial images were provided for interpretation. FINDINGS: There is straightening of the cervical spine. The occipital condyles, C1 ring appear inta ct. The odontoid process and C2 vertebral body appear intact. The spinous processes are intact. No acute fractures are seen. There is a normal alignment of the facet joints. There is a left-sided ple ural effusion. IMPRESSION: No evidence of acute fracture dislocation seen within the cervical spine. Left pleural effusion.
[2017-07-29 20:02] LABS: BASOPHILS % (AUTO) 0.3 % (0.0-3.0); EOSINOPHILS % (AUTO) 0.1 % (0.0-7.0); HEMATOCRIT 37.7 % (42.0-52.0); HEMOGLOBIN 12.2 g/dl (14.0-18.0); IMMATURE GRANULOCYTE % (AUTO) 0.4 % (0.0-5.0); LYMPHOCYTES # (AUTO) 1.6 K/uL (0.60-3.4); LYMPHOCYTES % (AUTO) 11.6 (10.0-50.0); MEAN CORPUSCULAR HGB CONC 32.4 (31.8-35.4); MEAN CORPUSCULAR VOLUME 95.7 fl (80.0-94.0); MONOCYTES # (AUTO) 0.7 K/uL (0.4-2.0); MONOCYTES % (AUTO) 5.2 (0-10); NEUTROPHILS # (AUTO) 11.2 K/ul (2.0-6.9); NEUTROPHILS % (AUTO) 82.4; PLATELET COUNT 297 10^3/uL (140-440); RED BLOOD COUNT 3.94 10^6/ul (4.70-6.10); WHITE BLOOD COUNT 13.59 K/ul (4.2-10.2)
--- NOTE | 2017-07-29 20:07 | CT ---
Exam: CT of the chest without contrast History: Fall with chest pain Technique: [address] of the chest without intravascular contrast FINDINGS: Moderate left and small right pleural effusion. Extensive granulomatous calcifications an d partially calcified nodules bilaterally. There is no pneumothorax. Mild emphysematous change. At herosclerotic calcification of the aorta without aneurysm. Prior median sternotomy. No pathologic l ymph node enlargement or abundance of mediastinum. No acute findings of the chest wall. No acute fin dings of the upper abdomen. Incidental cholelithiasis. Impression: 1. No evidence of significant post traumatic change of the chest 2. Bilateral multiple pulmonary nodules which are partially calcified. Similar findings on 09/21/20 13. 3. Moderate left and small right pleural effusions. Adjacent consolidative change of the left lung could be pneumonia or atelectasis.
--- NOTE | 2017-07-29 20:08 | CT ---
EXAM: CT of the lumbar spine without contrast. TECHNIQUE: Helical CT of the lumbar spine was performed without contrast with coronal and sagittal r econstructions. COMPARISON: CT thoracic spine from same day and CT lumbar spine from 07/29/2017 HISTORY: Trauma FINDINGS: There is a compression fracture at L5 which is new compared to the previous CT. This is r esulting in approximately 30% of vertebral body height loss. There is no significant retropulsion. There are a few sharply defined fracture lines within the vertebral body consistent with an acute fra cture. Alignment is anatomic. There are no pars defects. There is no bony effacement the canal. Disc spaces are well preserved. There is no evidence for laminar or transverse process or spinous process fractu re. The pedicles are intact. The facets are anatomically aligned. Soft tissues demonstrate no acut e abnormality. There is advanced calcific atherosclerosis. There are bilateral pleural effusions. T here are gallstones. There is a renal cyst on the right. There is a punctate nonobstructive calcifi cation in the left kidney. There is no abnormality seen in the visualized portion of the bony pelvis. There is advanced degenerative change noted with very advanced anterior osteophytosis at the thoraco lumbar junction. There are five lumbar-type vertebral bodies. IMPRESSION: 1. Acute compression fracture at L5 as described with no significant retropulsion. 2. Other miscellaneous findings as above.
--- NOTE | 2017-07-29 20:09 | CT ---
EXAM: CT thoracic spine without contrast TECHNIQUE: Helical CT of the thoracic spine was performed without contrast with coronal and sagittal reconstructions COMPARISON: Lumbar spine CT from same day HISTORY: Trauma FINDINGS: There is no acute fracture or dislocation or subluxation. There is a mild scoliosis. There is no compression fracture. There is no bony effacement of the canal. The lamina and facets are in tact. There is no transverse or spinous process fracture. There are no rib fractures seen. There i s no pneumothorax in the visualized lung pinon. There are bilateral effusions left greater than righ t along with extremely advanced pleural parenchymal changes and multifocal calcifications. There is e xtremely advanced degenerative change in the thoracic spine. In particular there is prominent anteri or osteophytosis at the thoracolumbar junction. There are gallstones. There is a nonobstructive punc andrews stone in the left kidney. There is calcific atherosclerosis. IMPRESSION: 1. No acute osseous abnormality in the thoracic spine. 2. Extremely advanced degenerative changes with no significant bony effacement of the canal. 3. Soft tissue findings as above please see report of chest CT from same day for details.
--- NOTE | 2017-07-29 20:09 | CT ---
Exam: CT pelvis without contrast History: Fall with pelvic pain Technique: [address] bony pelvis with multiplanar reformations FINDINGS: The pelvic ring is intact. Bones are demineralized. Left hip transfemoral nail. Right h ip intertrochanteric fracture with varus angulation. No acute visceral abnormalities are seen. Athe rosclerotic vascular calcifications. Impression: 1. Right hip comminuted intertrochanteric fracture.
[2017-07-29 20:19] LABS: ALBUMIN 2.3 g/dL (3.4-5.0); ALBUMIN/GLOBULIN RATIO 0.52; ANION GAP 14.7; BILIRUBIN,TOTAL 0.9 mg/dL (0.00-1.20); BUN/CREATININE RATIO 18.05; CALCIUM 9.4 mg/dL (8.2-10.2); CREATININE 1.44 mg/dL (0.60-1.10); POTASSIUM 4.7 mmol/L (3.5-5.1); TOTAL PROTEIN 6.7 g/dL (5.8-8.1)
[2017-07-29 20:24] VITALS: BP 88/68
--- NOTE | 2017-07-29 20:24 | ED.PDOC ---
General ED Provider: Dr. RUBEN THORNTON-ER Chief Complaint: Fall Stated Complaint: he fell at home--he is complaining of hip pain and back pain-- fell in transferring from wheelchair to bed Time Seen by Physician: 18:45 Mode of Arrival: Ambulance Information Source: Patient, Family, EMT Exam Limitations: No limitations Primary Care Provider: AQUILES REESE Nursing and Triage Documentation Reviewed and Agree: Yes Musculoskeletal Complaint Exam - Hip/Pelvis Complaint/Exam Location of Pain: Reports: Right, Hip Mechanism of Injury: Reports: Trauma Onset/Duration: 2 hrs Symptoms Are: Still present Initial Severity: Mild Current Severity: Moderate Location: Reports: Discrete Character: Reports: Dull, Aching Aggravating: Reports: Movement, Weight bearing Alleviating: Reports: Position Associated Signs and Symptoms: Denies: Swelling, Redness, Bruising, Fever, Weakness, Dizziness, Syncope, Abdominal pain, Knee pain Related History: Reports: Similar episode Able to Bear Weight: No Septic Arthritis Risk Factors: Reports: Extremes of age Related Surgical History: Reports: Left Hip ORIF Range of Motion Limited In: Present: Flexion NV Bundle Intact Distal to Injury: Yes Differential Diagnoses: Contusion, Fracture Review of Systems - Review Of Systems Constitutional: Reports: No symptoms Eyes: Reports: No symptoms Ears, Nose, Mouth, Throat: Reports: No symptoms Respiratory: Reports: No symptoms Cardiac: Reports: No symptoms GI: Reports: No symptoms : Reports: No symptoms Musculoskeletal: Reports: Back pain, Joint pain Skin: Reports: No symptoms Neurological: Reports: No symptoms Endocrine: Reports: No symptoms Hematologic/Lymphatic: Reports: No symptoms All Other Systems: Reviewed and Negative Past Medical History - Past Medical History Previously Healthy: No Endocrine: Reports: None Cardiovascular: Reports: CAD, PA, Hypertension, CHF, A-Fib, Other (defective heart valve,) Respiratory: Reports: COPD Hematological: Reports: None Gastrointestinal: Reports: None Genitourinary: Reports: None Neuro/Psych: Reports: CVA Musculoskeletal: Reports: None 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) - Surgical History General Surgical History: Reports: CABG, Orthopedic (SURGERY ON LEFT LEG), Other (carotid surg) - Family History Family History: Reports: Unknown - Social History Smoking Status: Former smoker Hx Substance Use: No Alcohol Screening: None Lives: With family Physical Exam - Physical Exam Appearance: Well-appearing, No pain distress, Well-nourished Pain Distress: Moderate Eyes: [place]CKENZ[place] ENT: Ears normal, Nose normal, Oropharynx normal Neck: Supple Respiratory: Airway patent, Breath sounds clear, Breath sounds equal, Respirations nonlabored Cardiovascular: RRR, Pulses normal, No rub, No murmur, Irregular rhythm GI/: Soft, Nontender, No masses, Bowel sounds normal, No Organomegaly Musculoskeletal: Normal strength, ROM intact, No edema, No calf tenderness Skin: Warm, Dry, Normal color Neurological: Sensation intact, Motor intact, Reflexes intact, Cranial nerves intact, Alert, Oriented Psychiatric: Affect appropriate, Mood appropriate Interpretation - Radiology Interpretation Radiology Interpretation By: Radiologist ("right hip intertroch fx --comminuted and L5 fx--acute") Radiology Results: Positive Exam Interpreted: CT Scan Physician Notification - Case Discussed Physician Notified: dr [email or web address]--agreed to accept in transfer Time of Notification: 21:10 Critical Care Note - Critical Care Note Total Time (mins): 0 Course - Course Hematology/Chemistry: 07/29/17 19:57 07/29/17 19:57 Orders, Labs, Meds: Lab Review 07/29/17 07/29/17 19:57 19:57 WBC 13.59 H RBC 3.94 L Hgb 12.2 L Hct 37.7 L MCV 95.7 H MCH 31.0 MCHC 32.4 RDW Coeff of Giuseppe 14.8 Plt Count 297 Immature Gran % (Auto) 0.4 Neut % (Auto) 82.4 Lymph % (Auto) 11.6 [place] % (Auto) 5.2 Eos % (Auto) 0.1 Baso % (Auto) 0.3 Immature Gran # (Auto) 0.1 Neut # 11.2 H Lymph # 1.6 [place] # 0.7 Eos # 0.0 Baso # 0.0 Sodium 135 L Potassium 4.7 Chloride 101 Carbon Dioxide 24 Anion Gap 14.7 BUN 26 H Creatinine 1.44 H Estimated GFR (MDRD) 47.00 BUN/Creatinine Ratio 18.05 Glucose 120 H Calcium 9.4 Total Bilirubin 0.90 AST 19 ALT 10 L Alkaline Phosphatase 98 Total Protein 6.7 Albumin 2.3 L Globulin 4.4 Albumin/Globulin Ratio 0.52 Orders Category Date Time Status EKG-(ED ONLY) Stat CARDIO 07/29/17 18:45 Completed ED IV/MEDIPORT/POWERPORT .ONCE EMERGENCY 07/29/17 20:00 Active CBC W/ AUTO DIFF Stat LAB 07/29/17 19:57 Completed COMPREHENSIVE METABOLIC PANEL Stat LAB 07/29/17 19:57 Completed 0.9 % Sodium Chloride [Saline Flush] MEDS 07/29/17 20:00 Ordered 1 syr IVF PRN PRN Morphine Sulfate [Morphine 2 mg/ml Syringe] MEDS 07/29/17 20:45 Discontinued 2 mg IVP ONCE STA Ondansetron HCl/Pf [Zofran 4 mg/2 ml] MEDS 07/29/17 20:45 Discontinued 4 mg IVP ONCE STA Sodium Chloride 0.9% [Sodium Chloride] 1,000 ml MEDS 07/29/17 20:[address] CERVICAL SPINE W/O CONTRAST Stat RADS 07/29/17 18:[address] CHEST W/O CONTRAST Stat RADS 07/29/17 18:[address] HEAD W/O CONTRAST Stat RADS 07/29/17 18:[address] LUMBAR SPINE W/O CONTRAST Stat RADS 07/29/17 18:[address] PELVIS W/O CONTRAST Stat RADS 07/29/17 18:[address] THORACIC SPINE W/O CONTRAST Stat RADS 07/29/17 18:45 Completed Medications Generic Name Dose Route Start Last Admin Trade Name Freq PRN Reason Stop Dose Admin Sodium Chloride 1 syr 07/29/17 20:00 Saline Flush IVF PRN PRN To flush IV Discontinued Medications Generic Name Dose Route Start Last Admin Trade Name Freq PRN Reason Stop Dose Admin Sodium Chloride 1,000 mls @ 1,000 mls/hr 07/29/17 20:00 07/29/17 20:15 Sodium Chloride IV 07/29/17 20:59 1,000 mls/hr BOLUS STA Administration Morphine Sulfate 2 mg 07/29/17 20:45 07/29/17 20:53 Morphine 2 Mg/Ml Syringe IVP 07/29/17 20:46 2 mg ONCE STA Administration Ondansetron HCl 4 mg 07/29/17 20:45 07/29/17 20:51 Zofran 4 Mg/2 Ml IVP 07/29/17 20:46 4 mg ONCE STA Administration the family asked to be transferred to [facility] due to dr astorga and Mary did not have neurosurgery Vital Signs: Temp Pulse Resp BP Pulse Ox 07/29/17 20:23 88/68 L 07/29/17 18:44 96.8 F L 70 20 92/62 96 Departure - Departure Time of Disposition: 21:11 Disposition: TSF SHORT-TRM HOSP Discharge Problem: Hip fracture Qualifiers: Encounter type: initial encounter Fracture type: closed Laterality: right Qualified Code(s): S72.001A - Fracture of unspecified part of neck of right femur, initial encounter for closed fracture Compression fracture of L5 lumbar vertebra Qualifiers: Encounter type: initial encounter Fracture type: closed Qualified Code(s): S32.050A - Wedge compression fracture of fifth lumbar vertebra, initial encounter for closed fracture Instructions: Hip Fracture (ED) Condition: Stable Pt referred to PMD for follow-up: Yes Allergies/Adverse Reactions: Allergies No Known Allergies Allergy (Verified 07/29/17 18:50) Home Medications: Ambulatory Orders Fenofibrate,Micronized [Fenofibrate] 134 mg PO DAILY 05/17/13 Finasteride 5 mg PO DAILY 05/17/13 Lovastatin 40 mg PO BEDTIME 05/17/13 Nitroglycerin [Nitrostat] 0.4 mg SL ONCE PRN 05/17/13 Pantoprazole Sodium 40 mg PO DAILY 05/17/13 Docusate Sodium 100 mg PO BID 09/21/13 Rivaroxaban [Xarelto] 20 mg PO BEDTIME 01/20/14 Diltiazem HCl [Cartia Xt] 120 mg PO DAILY 05/01/16 Ferrous Sulfate 325 mg PO BID 05/01/16 Furosemide 20 mg PO QDAC 05/01/16 Potassium Chloride 10 meq PO DAILY 05/01/16 Sucralfate [Carafate] 1 gm PO BIDAC 05/01/16 Gabapentin 300 mg PO BEDTIME #30 capsule 05/29/17 Mupirocin [Bactroban] 22 gm TP BID #1 tube 05/29/17 Sotalol HCl [Betapace] 20 mg PO BID #30 tablet 05/29/17 Transfer Form Completed: No Disposition Discussed With: Patient, Family
[2017-07-29] MEDS ORDERED: ZOFRAN 4 MG/2 ML IVP STA (20:45)
[2017-07-29] MEDS ORDERED: MORPHINE 2 MG/ML SYRINGE IVP STA (20:45)
== END 2017-07-29 21:45 | disposition short-term general hospital (02) ==
LOC: ED 18:44
DX: S72.001A Fracture of unspecified part of neck of right femur, initial encounter for closed fracture (principal); S32.050A Wedge compression fracture of fifth lumbar vertebra, initial encounter for closed fracture; R03.1 Nonspecific low blood-pressure reading; W05.0XXA Fall from non-moving wheelchair, initial encounter; Y92.003 Bedroom of unspecified non-institutional (private) residence as the place of occurrence of the external cause; I25.810 Atherosclerosis of coronary artery bypass graft(s) without angina pectoris; I10 Essential (primary) hypertension; I48.91 Unspecified atrial fibrillation; I50.9 Heart failure, unspecified; J44.9 Chronic obstructive pulmonary disease, unspecified; I25.2 Old myocardial infarction; Z79.899 Other long term (current) drug therapy; Z86.73 Personal history of transient ischemic attack (TIA), and cerebral infarction without residual deficits
CPT/HCPCS: 36415; 80053; 85025; 93005; 93010; 96360; 96361; 96375; 99284